=== PATIENT | female | born 1970 | race Caucasian/White ===

== ENCOUNTER 2016-12-11 21:06 | Emergency (ER) | payer SELFPAY ==
[~2016-12-11] VITALS: Ht 157.5 cm; Wt 71.0 kg
[2016-12-11 21:11] VITALS: Ht 157.5 cm; Wt 71.0 kg
--- NOTE | 2016-12-11 22:30 | ERD ---
ER Documentation Chief Complaint Chief Complaint pain left lower leg while walking x 5 hours ago, denies injury HPI ROS All systems reviewed and are negative except as per history of present illness. Medications Home Meds Active Scripts Ibuprofen* (Motrin*) 600 Mg Tab, 600 MG PO Q6, #30 TAB Prov:KENDRICK BURNETTBOSTON Chao PA-C 12/12/16 Allergies Allergies: Coded Allergies: No Known Drug Allergies (Verified Allergy, Unknown, 12/11/16) Physical Exam Vitals Vital Signs Date Time Temp Pulse Resp B/P Pulse Ox O2 Delivery O2 Flow Rate FiO2 12/11/16 21:11 97.8 66 20 141/85 97 Physical Exam Const: [] Head: Atraumatic Eyes: Normal Conjunctiva ENT: Normal External Ears, Nose and Mouth. Neck: Full range of motion..~ No meningismus. Resp: Clear to auscultation bilaterally Cardio: Regular rate and rhythm, no murmurs Abd: Soft, non tender, non distended. Normal bowel sounds Skin: No petechiae or rashes Back: No midline or flank tenderness Ext: No cyanosis, or edema Neur: Awake and alert Psych: Normal Mood and Affect Results 24 hrs Current Medications Medications (Trade) Dose Ordered Sig/Debbie Route PRN Reason Start Time Stop Time Status Last Admin Dose Admin Acetaminophen/ Hydrocodone Bitart ([place] (5/325)) 1 tab ONCE ONCE PO 12/11/16 23:00 12/11/16 23:01 DC 12/11/16 22:55 Ondansetron HCl (Zofran Odt) 4 mg ONCE STAT ODT 12/11/16 22:45 12/11/16 22:48 DC 12/11/16 22:55 Procedures/MDM Plan Rest, apply ice as needed; use medication as prescribed, expect some increase in pain for the next 1-3 days then decrease. I have asked the patient to be alerted for new or progressive systems such as changing level of consciousness, persistent tingling or weakness in the extremity, or unexplained symptoms return as needed. ARLETTE AVILES Dec 11, 2016 22:30
[2016-12-11] MEDS ORDERED: ONDANSETRON (ODT) 4 MG TAB ODT STA (22:45)
[2016-12-11] MEDS ORDERED: HYDROCODONE/APAP (5/325) TAB PO ONE (23:00)
--- NOTE | 2016-12-11 23:57 | RADRPT ---
PROCEDURE: US left lower extremity venous Doppler CLINICAL INDICATION: Swelling TECHNIQUE: Multiple sonographic images of the left lower extremity deep venous system was obtained utilizing grayscale, color-flow, compressive sonography and Doppler imaging with augmentation. COMPARISON: No pertinent prior examinations were submitted for comparison. FINDINGS: There is normal compressibility and flow within the left common femoral, superficial femoral, poplit eal, and calf veins. IMPRESSION: No sonographic evidence for left deep venous thrombosis. RPTAT: HIKT .Neftali Shepherd MD, MD Date Time Electronically viewed and signed by .Neftali Shepherd MD, on 12/11/2016 23:57 .T/
--- NOTE | 2016-12-12 00:41 | RADRPT ---
PROCEDURE: Left tibia and fibula. CLINICAL INDICATION: Pain. TECHNIQUE: 4 views including AP and lateral views of the left tibia and fibula were obtained. COMPARISON: None. FINDINGS: There is no fracture, dislocation or bone destruction. The joint spaces are within normal limits. Bone mineralization is within normal limits. There is no radiopaque foreign body or abnormal calcif ication. IMPRESSION: No evidence of fracture. .Javad Morales MD, MD Date Time Electronically viewed and signed by .Javad Morales MD, on 12/12/2016 00:41 .T/
[2016-12-12] MEDS ORDERED: IBUP-1542 PO (00:52)
--- NOTE | 2016-12-12 01:26 | ERD ---
ER Documentation Chief Complaint Chief Complaint pain left lower leg while walking x 5 hours ago, denies injury HPI Patient is a 46-year-old female presenting to the emergency department with complaints of left calf pain which began suddenly 5 hours ago. Symptoms are constant. Worse with walking. She took 2 Advil with mild relief. She denies falls, recent travel, or other symptoms currently. ROS All systems reviewed and are negative except as per history of present illness. Medications Home Meds Active Scripts Ibuprofen* (Motrin*) 600 Mg Tab, 600 MG PO Q6, #30 TAB Prov:BURNETTREZA PA-C 12/12/16 Allergies Allergies: Coded Allergies: No Known Drug Allergies (Verified Allergy, Unknown, 12/11/16) Physical Exam Vitals Vital Signs Date Time Temp Pulse Resp B/P Pulse Ox O2 Delivery O2 Flow Rate FiO2 12/11/16 21:11 97.8 66 20 141/85 97 Physical Exam Const: Nontoxic, well-appearing female in no acute distress. Head: Atraumatic Eyes: Normal Conjunctiva ENT: Normal External Ears, Nose and Mouth. Neck: Full range of motion..~ No meningismus. Resp: Clear to auscultation bilaterally Cardio: Regular rate and rhythm, no murmurs Ext: There is tenderness palpation of the left calf. No edema. 2+ DP pulses. Neur: Awake and alert Psych: Normal Mood and Affect Results 24 hrs Current Medications Medications (Trade) Dose Ordered Sig/Debbie Route PRN Reason Start Time Stop Time Status Last Admin Dose Admin Acetaminophen/ Hydrocodone Bitart ([place] (5/325)) 1 tab ONCE ONCE PO 12/11/16 23:00 12/11/16 23:01 DC 12/11/16 22:55 Ondansetron HCl (Zofran Odt) 4 mg ONCE STAT ODT 12/11/16 22:45 12/11/16 22:48 DC 12/11/16 22:55 Procedures/MDM Patient is a 46-year-old female with no significant medical history presenting for left calf pain. Patient was given [place] and Zofran in the department and is feeling improved prior to discharge. Ultrasound of the left lower extremity showed no sonographic evidence for deep venous thrombosis. X-ray was negative. The patient is stable for outpatient management with prescriptions. She is to follow-up with her primary care physician in the next 1-2 days. She is to return immediately for any new or worsening symptoms. PROCEDURE: US left lower extremity venous Doppler CLINICAL INDICATION: Swelling TECHNIQUE: Multiple sonographic images of the left lower extremity deep venous system was obtained utilizing grayscale, color-flow, compressive sonography and Doppler imaging with augmentation. COMPARISON: No pertinent prior examinations were submitted for comparison. FINDINGS: There is normal compressibility and flow within the left common femoral, superficial femoral, popliteal, and calf veins. IMPRESSION: No sonographic evidence for left deep venous thrombosis. RPTAT: HIKT .Neftali Shepherd MD, MD Date Time Electronically viewed and signed by .Neftali Shepherd MD, MD on 12/11/2016 23:57 PROCEDURE: Left tibia and fibula. CLINICAL INDICATION: Pain. TECHNIQUE: 4 views including AP and lateral views of the left tibia and fibula were obtained. COMPARISON: None. FINDINGS: There is no fracture, dislocation or bone destruction. The joint spaces are within normal limits. Bone mineralization is within normal limits. There is no radiopaque foreign body or abnormal calcification. IMPRESSION: No evidence of fracture. .Javad Morales MD, Date Time Electronically viewed and signed by .Javad Morales MD, MD on 12/12/2016 00:41 Departure Diagnosis: Primary Impression: Pain of left calf Condition: Fair Patient Instructions: Lower Body Exercises: Calf Stretch Referrals: COMMUNITY CLINICS YOU HAVE RECEIVED A MEDICAL SCREENING EXAM AND THE RESULTS INDICATE THAT YOU DO NOT HAVE A CONDITION THAT REQUIRES URGENT TREATMENT IN THE EMERGENCY DEPARTMENT. FURTHER EVALUATION AND TREATMENT OF YOUR CONDITION CAN WAIT UNTIL YOU ARE SEEN IN YOUR DOCTORS OFFICE WITHIN THE NEXT 1-2 DAYS. IT IS YOUR RESPONSIBILITY TO MAKE AN APPOINTMENT FOR FOLOW-UP CARE. IF YOU HAVE A PRIMARY DOCTOR --you should call your primary doctor and schedule an appointment IF YOU DO NOT HAVE A PRIMARY DOCTOR YOU CAN CALL OUR PHYSICIAN REFERRAL HOTLINE AT IF YOU CAN NOT AFFORD TO SEE A PHYSICIAN YOU CAN CHOSE FROM THE FOLLOWING COMMUNITY CLINICS [facility] [address] [facility] [address] [facility] [address] [facility] [address] [facility] [facility] [facility] [phone] [facility]. [facility] [address] Additional Instructions: No mas mejor en 2-3 sidhu, regresar. Mas peor en 24 horas, regresear rapidamente. Ir a doctor primario en 1-2 sidhu. Usar instrucciones cuando connie medicamento. REZA BURNETT PA-C Dec 12, 2016 01:26
--- NOTE | 2016-12-12 01:26 | ERD ---
ER Documentation Chief Complaint Chief Complaint pain left lower leg while walking x 5 hours ago, denies injury HPI Patient is a 46-year-old female presenting to the emergency department with complaints of left calf pain which began suddenly 5 hours ago. Symptoms are constant. Worse with walking. She took 2 Advil with mild relief. She denies falls, recent travel, or other symptoms currently. ROS All systems reviewed and are negative except as per history of present illness. Medications Home Meds Active Scripts Ibuprofen* (Motrin*) 600 Mg Tab, 600 MG PO Q6, #30 TAB Prov:BURNETTREZA PA-C 12/12/16 Allergies Allergies: Coded Allergies: No Known Drug Allergies (Verified Allergy, Unknown, 12/11/16) Physical Exam Vitals Vital Signs Date Time Temp Pulse Resp B/P Pulse Ox O2 Delivery O2 Flow Rate FiO2 12/11/16 21:11 97.8 66 20 141/85 97 Physical Exam Const: Nontoxic, well-appearing female in no acute distress. Head: Atraumatic Eyes: Normal Conjunctiva ENT: Normal External Ears, Nose and Mouth. Neck: Full range of motion..~ No meningismus. Resp: Clear to auscultation bilaterally Cardio: Regular rate and rhythm, no murmurs Ext: There is tenderness palpation of the left calf. No edema. 2+ DP pulses. Neur: Awake and alert Psych: Normal Mood and Affect Results 24 hrs Current Medications Medications (Trade) Dose Ordered Sig/Debbie Route PRN Reason Start Time Stop Time Status Last Admin Dose Admin Acetaminophen/ Hydrocodone Bitart ([place] (5/325)) 1 tab ONCE ONCE PO 12/11/16 23:00 12/11/16 23:01 DC 12/11/16 22:55 Ondansetron HCl (Zofran Odt) 4 mg ONCE STAT ODT 12/11/16 22:45 12/11/16 22:48 DC 12/11/16 22:55 Procedures/MDM Patient is a 46-year-old female with no significant medical history presenting for left calf pain. Patient was given [place] and Zofran in the department and is feeling improved prior to discharge. Ultrasound of the left lower extremity showed no sonographic evidence for deep venous thrombosis. X-ray was negative. The patient is stable for outpatient management with prescriptions. She is to follow-up with her primary care physician in the next 1-2 days. She is to return immediately for any new or worsening symptoms. PROCEDURE: US left lower extremity venous Doppler CLINICAL INDICATION: Swelling TECHNIQUE: Multiple sonographic images of the left lower extremity deep venous system was obtained utilizing grayscale, color-flow, compressive sonography and Doppler imaging with augmentation. COMPARISON: No pertinent prior examinations were submitted for comparison. FINDINGS: There is normal compressibility and flow within the left common femoral, superficial femoral, popliteal, and calf veins. IMPRESSION: No sonographic evidence for left deep venous thrombosis. RPTAT: HIKT .Neftali Shepherd MD, MD Date Time Electronically viewed and signed by .Neftali Shepherd MD, MD on 12/11/2016 23:57 PROCEDURE: Left tibia and fibula. CLINICAL INDICATION: Pain. TECHNIQUE: 4 views including AP and lateral views of the left tibia and fibula were obtained. COMPARISON: None. FINDINGS: There is no fracture, dislocation or bone destruction. The joint spaces are within normal limits. Bone mineralization is within normal limits. There is no radiopaque foreign body or abnormal calcification. IMPRESSION: No evidence of fracture. .Javad Morales MD, Date Time Electronically viewed and signed by .Javad Morales MD, MD on 12/12/2016 00:41 Departure Diagnosis: Primary Impression: Pain of left calf Condition: Fair Patient Instructions: Lower Body Exercises: Calf Stretch Referrals: COMMUNITY CLINICS YOU HAVE RECEIVED A MEDICAL SCREENING EXAM AND THE RESULTS INDICATE THAT YOU DO NOT HAVE A CONDITION THAT REQUIRES URGENT TREATMENT IN THE EMERGENCY DEPARTMENT. FURTHER EVALUATION AND TREATMENT OF YOUR CONDITION CAN WAIT UNTIL YOU ARE SEEN IN YOUR DOCTORS OFFICE WITHIN THE NEXT 1-2 DAYS. IT IS YOUR RESPONSIBILITY TO MAKE AN APPOINTMENT FOR FOLOW-UP CARE. IF YOU HAVE A PRIMARY DOCTOR --you should call your primary doctor and schedule an appointment IF YOU DO NOT HAVE A PRIMARY DOCTOR YOU CAN CALL OUR PHYSICIAN REFERRAL HOTLINE AT IF YOU CAN NOT AFFORD TO SEE A PHYSICIAN YOU CAN CHOSE FROM THE FOLLOWING COMMUNITY CLINICS [facility] [address] [facility] [address] [facility]. [facility] [address] [facility] [address] [facility] [facility] [phone] [facility]. [facility] [address] Additional Instructions: No mas mejor en 2-3 sidhu, regresar. Mas peor en 24 horas, regresear rapidamente. Ir a doctor primario en 1-2 sidhu. Usar instrucciones cuando connie medicamento. REZA BURNETT PA-C Dec 12, 2016 01:26
--- NOTE | 2016-12-12 01:26 | ERD ---
ER Documentation Chief Complaint Chief Complaint pain left lower leg while walking x 5 hours ago, denies injury HPI Patient is a 46-year-old female presenting to the emergency department with complaints of left calf pain which began suddenly 5 hours ago. Symptoms are constant. Worse with walking. She took 2 Advil with mild relief. She denies falls, recent travel, or other symptoms currently. ROS All systems reviewed and are negative except as per history of present illness. Medications Home Meds Active Scripts Ibuprofen* (Motrin*) 600 Mg Tab, 600 MG PO Q6, #30 TAB Prov:BURNETTREZA PA-C 12/12/16 Allergies Allergies: Coded Allergies: No Known Drug Allergies (Verified Allergy, Unknown, 12/11/16) Physical Exam Vitals Vital Signs Date Time Temp Pulse Resp B/P Pulse Ox O2 Delivery O2 Flow Rate FiO2 12/11/16 21:11 97.8 66 20 141/85 97 Physical Exam Const: Nontoxic, well-appearing female in no acute distress. Head: Atraumatic Eyes: Normal Conjunctiva ENT: Normal External Ears, Nose and Mouth. Neck: Full range of motion..~ No meningismus. Resp: Clear to auscultation bilaterally Cardio: Regular rate and rhythm, no murmurs Ext: There is tenderness palpation of the left calf. No edema. 2+ DP pulses. Neur: Awake and alert Psych: Normal Mood and Affect Results 24 hrs Current Medications Medications (Trade) Dose Ordered Sig/Debbie Route PRN Reason Start Time Stop Time Status Last Admin Dose Admin Acetaminophen/ Hydrocodone Bitart ([place] (5/325)) 1 tab ONCE ONCE PO 12/11/16 23:00 12/11/16 23:01 DC 12/11/16 22:55 Ondansetron HCl (Zofran Odt) 4 mg ONCE STAT ODT 12/11/16 22:45 12/11/16 22:48 DC 12/11/16 22:55 Procedures/MDM Patient is a 46-year-old female with no significant medical history presenting for left calf pain. Patient was given [place] and Zofran in the department and is feeling improved prior to discharge. Ultrasound of the left lower extremity showed no sonographic evidence for deep venous thrombosis. X-ray was negative. The patient is stable for outpatient management with prescriptions. She is to follow-up with her primary care physician in the next 1-2 days. She is to return immediately for any new or worsening symptoms. PROCEDURE: US left lower extremity venous Doppler CLINICAL INDICATION: Swelling TECHNIQUE: Multiple sonographic images of the left lower extremity deep venous system was obtained utilizing grayscale, color-flow, compressive sonography and Doppler imaging with augmentation. COMPARISON: No pertinent prior examinations were submitted for comparison. FINDINGS: There is normal compressibility and flow within the left common femoral, superficial femoral, popliteal, and calf veins. IMPRESSION: No sonographic evidence for left deep venous thrombosis. RPTAT: HIKT .Neftali Shepherd MD, MD Date Time Electronically viewed and signed by .Neftali Shepherd MD, MD on 12/11/2016 23:57 PROCEDURE: Left tibia and fibula. CLINICAL INDICATION: Pain. TECHNIQUE: 4 views including AP and lateral views of the left tibia and fibula were obtained. COMPARISON: None. FINDINGS: There is no fracture, dislocation or bone destruction. The joint spaces are within normal limits. Bone mineralization is within normal limits. There is no radiopaque foreign body or abnormal calcification. IMPRESSION: No evidence of fracture. .Javad Morales MD, Date Time Electronically viewed and signed by .Javad Morales MD, MD on 12/12/2016 00:41 Departure Diagnosis: Primary Impression: Pain of left calf Condition: Fair Patient Instructions: Lower Body Exercises: Calf Stretch Referrals: COMMUNITY CLINICS YOU HAVE RECEIVED A MEDICAL SCREENING EXAM AND THE RESULTS INDICATE THAT YOU DO NOT HAVE A CONDITION THAT REQUIRES URGENT TREATMENT IN THE EMERGENCY DEPARTMENT. FURTHER EVALUATION AND TREATMENT OF YOUR CONDITION CAN WAIT UNTIL YOU ARE SEEN IN YOUR DOCTORS OFFICE WITHIN THE NEXT 1-2 DAYS. IT IS YOUR RESPONSIBILITY TO MAKE AN APPOINTMENT FOR FOLOW-UP CARE. IF YOU HAVE A PRIMARY DOCTOR --you should call your primary doctor and schedule an appointment IF YOU DO NOT HAVE A PRIMARY DOCTOR YOU CAN CALL OUR PHYSICIAN REFERRAL HOTLINE AT IF YOU CAN NOT AFFORD TO SEE A PHYSICIAN YOU CAN CHOSE FROM THE FOLLOWING COMMUNITY CLINICS [facility] [address] [facility] [address] [facility] [facility] [address] [facility] [address] [facility] [facility] [phone] [facility]. [facility] [address] Additional Instructions: No mas mejor en 2-3 sidhu, regresar. Mas peor en 24 horas, regresear rapidamente. Ir a doctor primario en 1-2 sidhu. Usar instrucciones cuando connie medicamento. REZA BURNETT PA-C Dec 12, 2016 01:26
== END 2016-12-12 00:59 | disposition home or self-care (01) ==
LOC: FTE 21:06
DX: M79.605 Pain in left leg (principal)
CPT/HCPCS: 73590; 93971